=== PATIENT | male | born 1995 ===

== ENCOUNTER 2023-06-23 17:15 | Emergency (ER) | payer BC, OTHER ==
[2023-06-23] MEDS ORDERED: TDAP (DIPHTH,PERTUSS(ACELL),TET VAC) 0.5 ML VIAL IMVAC ONE (17:43)
[2023-06-23] MEDS ORDERED: HYDROCODONE/APAP 10/325 TAB ONE (17:43)
--- NOTE | 2023-06-23 18:06 | EDPHYS ---
Physician Documentation [facility] Name: Bakari Becerra Age: 27 yrs Sex: Male : 1995 Arrival Date: 06/23/2023 Time: 17:15 Bed 11 Private MD: ED Physician Dinh Alvarez HPI: 06/24 00:57 This 27 yrs old Male presents to ER via Ambulatory with complaints of Finger Injury. kb 00:57 Onset: The symptoms/episode began/occurred just prior to arrival. Patient reports he kb was preparing ribs and accidentally sliced the end of his left middle finger off with a knife.. Historical: - Allergies: 06/23 17:28 No Known Allergies; mb9 - Home Meds: 17:28 None [Active]; mb9 - PMHx: 17:28 None; mb9 - PSHx: 17:28 None; mb9 - Immunization history:: Adult Immunizations up to date. - Social history:: Smoking status: Patient denies any tobacco usage or history of. ROS: 06/24 00:57 Constitutional: Negative for fever, chills, and weight loss. kb Skin: Positive for avulsion, of the dorsal aspect of distal phalanx of left middle finger. All other systems are negative. Exam: 00:57 Constitutional: This is a well developed, well nourished patient who is awake, alert, kb and in no acute distress. Head/Face: Normocephalic, atraumatic. ENT: Moist Mucous membranes Cardiovascular: Regular rate and rhythm with a normal S1 and S2. No gallops, murmurs, or rubs. No pulse deficits. Respiratory: Respirations even and unlabored. No increased work of breathing. Talking in full sentences MS/ Extremity: Pulses equal, no cyanosis. Neurovascular intact. Full, normal range of motion. Neuro: Awake and alert, GCS 15, oriented to person, place, time, and situation. Moves all extremities. Normal gait. 00:57 Skin: injury, avulsion(s), a small of the dorsal aspect of distal phalanx of left middle finger. Vital Signs: 06/23 17:26 BP 139 / 89; Pulse 79; Resp 18; Temp 98.2; Pulse Ox 100% on R/A; Weight 140.61 kg; mb9 Height 5 ft. 10 in. ; Pain 8/10; 18:15 BP 124 / 84; Pulse 81; Resp 16; Pulse Ox 100% on R/A; mb9 17:26 Body Mass Index 44.48 (140.61 kg, 177.8 cm) mb9 17:26 Pain Scale: Adult mb9 MDM: 17:19 Patient medically screened. snw 06/24 00:57 Data reviewed: vital signs, nurses notes. kb 00:57 Differential diagnosis: superficial laceration, Avulsion laceration, partial kb amputation. I considered the following discharge prescriptions or medication management in the emergency department I discussed and recommended Over The Counter medications, Antibiotics: At this time antibiotics are not recommended. Test considered but Not performed: X-ray: X-ray considered but no bone exposed and cut was to the very distal tip of the left middle finger. Counseling: I had a detailed discussion with the patient and/or guardian regarding the historical points, exam findings, and any diagnostic results supporting the discharge/admit diagnosis, the need for outpatient follow up, a family practitioner, to return to the emergency department if symptoms worsen or persist or if there are any questions or concerns that arise at home. 06/23 17:25 Order name: Wound Care; Complete Time: 17:30 kb Administered Medications: 06/23 17:39 Drug: Tetanus-Diphtheria Toxoid IM Adult 0.5 ml {Client Solutions Manager: Daily Dealy ([employer]). mb9 Exp: 11/05/2023. Lot #: [id number]. } Route: IM; Site: right deltoid; 17:39 Drug: [place] PO 10 mg-325 mg 1 tabs Route: PO; mb9 Disposition Summary: 06/23/23 18:06 Discharge Ordered Location: Home kb Condition: Stable kb Diagnosis - Avulsion to tip of left middle finger kb Followup: kb - With: Emergency Department - When: As needed - Reason: Worsening of condition Followup: kb - With: Private Physician - When: 2 - 3 days - Reason: Recheck today's complaints, Continuance of care, Re-evaluation by your physician Discharge Instructions: - Discharge Summary Sheet kb - Deep Skin Avulsion kb Forms: - Medication Reconciliation Form kb - Thank You Letter kb - Antibiotic Education kb - Prescription Opioid Use kb - Patient Portal Instructions kb - Leadership Thank You Letter kb Signatures: Lindsay Guerra FNP-C FNP-Ckb Roxana Maddox, WAREHOUSE ORDER SELECTOR-C WAREHOUSE ORDER SELECTOR-Csnw Kirstie Arriola, RN RN mb9
--- NOTE | 2023-06-23 18:06 | ER ---
Nurse's Notes [facility] Name: Bakari Becerra Age: 27 yrs Sex: Male : 1995 Arrival Date: 06/23/2023 Time: 17:15 Bed 11 Private MD: Diagnosis: Avulsion to tip of left middle finger Presentation: 06/23 17:26 Chief complaint: Patient states: "I cut my left middle finger with a knife on mb9 accident". Coronavirus screen: At this time, the client does not indicate any symptoms associated with coronavirus-19. Ebola Screen: No symptoms or risks identified at this time. Initial Sepsis Screen: Does the patient meet any 2 criteria? No. Patient's initial sepsis screen is negative. Does the patient have a suspected source of infection? No. Patient's initial sepsis screen is negative. Risk Assessment: Do you want to hurt yourself or someone else? Patient reports no desire to harm self or others. Onset of symptoms was June 23, 2023. 17:26 Method Of Arrival: Ambulatory 9 17:26 Acuity: GRADY 4 mb9 Triage Assessment: 17:28 General: Appears distressed, Behavior is calm, cooperative. Pain: Complains of pain in mb9 left hand. Neuro: Ann Agitation-Sedation Scale (RASS): 0 - Alert and Calm Level of Consciousness is awake, alert, obeys commands, Oriented to person, place, time, situation, Appropriate for age. Cardiovascular: Patient's skin is warm and dry. Respiratory: Airway is patent Respiratory effort is even, unlabored, Respiratory pattern is regular, symmetrical. GI: No signs and/or symptoms were reported involving the gastrointestinal system. : No signs and/or symptoms were reported regarding the genitourinary system. Musculoskeletal: Range of motion: intact in all extremities. Injury Description: Laceration sustained to left middle finger is clean, superficial, 0.5 to 2.5 cm long, not bleeding. Historical: - Allergies: 17:28 No Known Allergies; mb9 - Home Meds: 17:28 None [Active]; mb9 - PMHx: 17:28 None; mb9 - PSHx: 17:28 None; mb9 - Immunization history:: Adult Immunizations up to date. - Social history:: Smoking status: Patient denies any tobacco usage or history of. Screenin:29 [facility] ED Fall Risk Assessment (Adult) History of falling in the last 3 months, mb9 including since admission No falls in past 3 months (0 pts) Confusion or Disorientation No (0 pts) Intoxicated or Sedated No (0 pts) Impaired Gait No (0 pts) Mobility Assist Device Used No (0 pt) Altered Elimination No (0 pt) Score/Fall Risk Level 0 - 2 = Low Risk Oriented to surroundings, Maintained a safe environment, Educated pt \\T\\ family on fall prevention, incl call for assistance when getting out of bed. Abuse screen: Denies threats or abuse. Nutritional screening: No deficits noted. Tuberculosis screening: No symptoms or risk factors identified. Assessment: 17:29 Reassessment: see triage assessment. mb9 Vital Signs: 17:26 BP 139 / 89; Pulse 79; Resp 18; Temp 98.2; Pulse Ox 100% on R/A; Weight 140.61 kg; mb9 Height 5 ft. 10 in. ; Pain 8/10; 18:15 BP 124 / 84; Pulse 81; Resp 16; Pulse Ox 100% on R/A; mb9 17:26 Body Mass Index 44.48 (140.61 kg, 177.8 cm) mb9 17:26 Pain Scale: Adult mb9 ED Course: 17:19 Patient arrived in ED. mg5 17:19 Lindsay Guerra FNP-C is PHCP. kb 17:19 Dinh Alvarez MD is Attending Physician. kb 17:19 Roxana Maddox FNP-C is PHCP. snw 17:22 Kirstie Arriola, HENNA is Primary Nurse. mb9 17:28 Triage completed. mb9 17:28 Arm band placed on. mb9 17:29 Placed in gown. Bed in low position. Call light in reach. Side rails up X 1. Client mb9 placed on continuous cardiac and pulse oximetry monitoring. NIBP monitoring applied. 17:30 No provider procedures requiring assistance completed. Patient did not have IV access mb9 during this emergency room visit. Administered Medications: 17:39 Drug: Tetanus-Diphtheria Toxoid IM Adult 0.5 ml {Environmental Protection Geologist: Soraa ([employer]). mb9 Exp: 11/05/2023. Lot #: [id number]. } Route: IM; Site: right deltoid; 17:39 Drug: [place] PO 10 mg-325 mg 1 tabs Route: PO; mb9 Medication: 17:30 VIS not applicable for this client. mb9 Outcome: 18:06 Discharge ordered by MD. morton 18:15 Discharged to home ambulatory. mb9 18:15 Condition: stable 18:15 Discharge instructions given to patient, family, Instructed on discharge instructions, follow up and referral plans. Demonstrated understanding of instructions, follow-up care. 18:15 Patient left the ED. mb9 Signatures: Lindsay Guerra, COREMAKER BENCH-C COREMAKER BENCH-Ckb Roxana Maddox FNP-C COREMAKER BENCH-Lyndaw Kirstie Arriola RN RN mb9 Marisa Lamb mg5
[2023-06-23 18:36] VITALS: TEMP 98.2; O2SAT 100
[2023-06-23 18:38] VITALS: BP 124/84
== END 2023-06-23 18:15 | disposition home or self-care (01) ==
LOC: ER 17:15
DX: S61.213A Laceration without foreign body of left middle finger without damage to nail, initial encounter (principal); W26.0XXA Contact with knife, initial encounter; Y93.G3 Activity, cooking and baking; Y92.010 Kitchen of single-family (private) house as the place of occurrence of the external cause; Z23 Encounter for immunization
CPT/HCPCS: 90471; 99284